=== PATIENT | female | born 1955 | race Caucasian/White ===

== ENCOUNTER 2018-05-13 06:30 | Day surgery (SDC) | payer BC, OTHER ==
[~2018-05-13] VITALS: Ht 165.1 cm; Wt 83.0 kg
[~2018-05-13 06:30] MED LIST: ALBU8.5H8 INH; COLE1TAB5 PO; FLUT1DIS IH; LEVO88TA2 PO; PANT40TA5 PO; PARO12.53 PO
[2018-05-13] MEDS ORDERED: LACTATED RINGERS 1,000 ML IV SCH (06:56)
[2018-05-13] MEDS ORDERED: SCOPOLAMINE PATCH, 1.5MG PATCH.TD72 TD ONE (07:00)
[2018-05-13] MEDS ORDERED: ONDANSETRON ODT 8 MG PO ONE (07:00)
[2018-05-13] MEDS ORDERED: ACETAMINOPHEN 500 MG TABLET PO ONE (07:00)
[2018-05-13] MEDS ORDERED: GABAPENTIN 300 MG CAPSULE PO ONE (07:00)
[2018-05-13] MEDS ORDERED: BUPIVACAINE/PF 0.5% ONE (07:11)
[2018-05-13] MEDS ORDERED: EPINEPHRINE 1 MG/ML, 1ML ONE (07:11)
[2018-05-13] MEDS ORDERED: MIDAZOLAM 1 MG/ML, 2ML ONE (08:15)
[2018-05-13] MEDS ORDERED: FENTANYL PF 100 MCG/2ML ONE (08:15)
[2018-05-13] MEDS ORDERED: PROPOFOL 50 ML ONE (08:28)
[2018-05-13] MEDS ORDERED: FENTANYL PF 100 MCG/2ML IV PRN (09:00)
[2018-05-13] MEDS ORDERED: LABETALOL 5MG/ML, 20ML IV PRN (09:00)
[2018-05-13] MEDS ORDERED: PROMETHAZINE 25 MG SUPP PR PRN (09:00)
[2018-05-13] MEDS ORDERED: MORPHINE SULFATE 4 MG/ML, 1ML IVPush PRN (09:00)
[2018-05-13] MEDS ORDERED: OXYcodone 5 MG/5 ML ORAL.SOL UDC PO PRN (09:00)
[2018-05-13] MEDS ORDERED: MIDAZOLAM 1 MG/ML, 2ML IV PRN (09:00)
[2018-05-13] MEDS ORDERED: HYDROmorphone 2 MG/ML, 1ML IV PRN (09:00)
[2018-05-13] MEDS ORDERED: MEPERIDINE/PF 25MG/0.5ML IVPush PRN (09:00)
[2018-05-13] MEDS ORDERED: PROMETHAZINE 25 MG/ML, 1ML IV PRN (09:00)
[2018-05-13] MEDS ORDERED: EPHEDRINE 50 MG/ML, 1ML IVPush PRN (09:00)
[2018-05-13] MEDS ORDERED: ONDANSETRON ODT 8 MG PO PRN (09:00)
[2018-05-13] MEDS ORDERED: EPHEDRINE 50 MG/ML, 1ML IM PRN (09:00)
[2018-05-13] MEDS ORDERED: ALBUTEROL/IPRATROPIUM 2.5MG/0.5MG, 3 ML NPPB PRN (09:00)
[2018-05-13] MEDS ORDERED: CEFAZOLIN 1,000 MG ONE (09:19)
[2018-05-13] MEDS ORDERED: GLYCOPYRROLATE 0.2MG/1ML, 5ML ONE (09:19)
[2018-05-13] MEDS ORDERED: PROPOFOL 10 MG/ML, 20ML ONE (09:19)
[2018-05-13] MEDS ORDERED: SUCCINYLCHOLINE 20 MG/ML, 10ML ONE (09:19)
[2018-05-13] MEDS ORDERED: NEOSTIGMINE 1 MG/ML, 10ML ONE (09:19)
[2018-05-13] MEDS ORDERED: ROCURONIUM 10MG/ML,5ML ONE (09:19)
[2018-05-13] MEDS ORDERED: ONDANSETRON 2MG/ML, 2ML ONE (09:19)
[2018-05-13] MEDS ORDERED: DEXAMETHASONE 4 MG/ML, 1ML ONE (09:19)
[2018-05-13] MEDS ORDERED: MORPHINE SULFATE 4 MG/ML, 1ML ONE (09:36)
[2018-05-13] MEDS ORDERED: OXYcodone 5 MG/5 ML ORAL.SOL UDC ONE (09:37)
[2018-05-13] MEDS ORDERED: PROMETHAZINE 25 MG/ML, 1ML ONE (09:50)
[2018-05-13] MEDS ORDERED: CEFOTETAN 2 GM ONE (10:55)
== END 2018-05-13 15:40 ==
LOC: OUT 06:30
PROVIDERS: ATTEND Surgery
DX: K82.8 Other specified diseases of gallbladder (principal); K21.9 Gastro-esophageal reflux disease without esophagitis; E03.9 Hypothyroidism, unspecified; E66.9 Obesity, unspecified; J45.909 Unspecified asthma, uncomplicated; Z98.890 Other specified postprocedural states; Z90.13 Acquired absence of bilateral breasts and nipples; Z72.89 Other problems related to lifestyle; Z88.5 Allergy status to narcotic agent
CPT/HCPCS: 47562; 88304; 93005; 94640; J0171; J0330; J0690; J1100; J2250; J2405; J2550; J2704; J2710; J3010; J3490; J7120; Q0162; J7620; S0074

== ENCOUNTER → 2018-08-05 | Outpatient (CLI) | payer OTHER ==
[~2018-08-05] MED LIST changes: +REGADENOSON 0.4 MG/5 ML SYRINGE ONE
== END | disposition home or self-care (01) ==
LOC: CFH 08:06
PROVIDERS: ATTEND Internal Medicine Cardiovascular Disease
DX: R07.89 Other chest pain (principal); R55 Syncope and collapse
CPT/HCPCS: 78452; 93017; A9502; J2785

== ENCOUNTER 2019-06-21 06:54 | Outpatient (CLI) | payer OTHER ==
[~2019-06-21 06:54] MED LIST changes: -REGADENOSON 0.4 MG/5 ML SYRINGE ONE
[2019-06-21] MEDS ORDERED: REGADENOSON 0.4 MG/5 ML SYRINGE ONE (07:33)
== END 2019-06-21 23:59 | disposition home or self-care (01) ==
LOC: CVU 06:54
PROVIDERS: ATTEND Internal Medicine Cardiovascular Disease
DX: I36.1 Nonrheumatic tricuspid (valve) insufficiency (principal); I25.9 Chronic ischemic heart disease, unspecified; R55 Syncope and collapse; Z85.3 Personal history of malignant neoplasm of breast
CPT/HCPCS: 0399T; 78452; 93017; 93306; A9502; J2785

== ENCOUNTER 2019-08-01 10:01 | Outpatient (CLI) | payer OTHER | END 2019-08-01 23:59 | disposition home or self-care (01) | LOC: CFH 10:01 | PROVIDERS: ATTEND Internal Medicine Hematology & Oncology | DX: R16.0 Hepatomegaly, not elsewhere classified (principal); C50.919 Malignant neoplasm of unspecified site of unspecified female breast; Z90.49 Acquired absence of other specified parts of digestive tract | CPT/HCPCS: 74181 ==

== ENCOUNTER 2020-06-20 08:10 | Day surgery (SDC) | payer OTHER ==
[~2020-06-20] VITALS: Ht 165.1 cm; Wt 81.6 kg
[~2020-06-20 08:10] MED LIST changes: -PANT40TA5 PO; +PANT40TA6 PO; -PARO12.53 PO; +PARO12.54 PO
[2020-06-20] MEDS ORDERED: MULT-752 PO (09:23)
[2020-06-20] MEDS ORDERED: ZOLP6.252 PO (09:23)
[2020-06-20] MEDS ORDERED: LACT1CAP35 PO (09:23)
[2020-06-20] MEDS ORDERED: ASPI81TA45 PO (09:23)
[2020-06-20] MEDS ORDERED: MIDO5TAB9 PO (09:23)
[2020-06-20 09:24] VITALS: BP 133/64
[2020-06-20 10:27] LABS: BASOPHILS # (AUTO) 0.05 x10^3/uL (0-0.1); BASOPHILS % (AUTO) 1 % (0-1); EOSINOPHILS # (AUTO) 0.19 x10^3/uL (0-0.4); EOSINOPHILS % (AUTO) 4 % (1-7); LYMPHOCYTES # (AUTO) 1.91 x10^3/uL (1-3.4); LYMPHOCYTES % (AUTO) 40 % (22-44); MD NO; MEAN CORPUSCULAR HEMOGLOBIN 29.8 pg (27.0-34.8); MEAN CORPUSCULAR HGB CONC 33.3 g/dL (32.4-35.8); MEAN PLATELET VOLUME 8.2 fL (7.4-10.4); MONOCYTES # (AUTO) 0.33 x10^3/uL (0.2-0.8); MONOCYTES % (AUTO) 7 % (2-9); NEUTROPHILS # (AUTO) 2.34 x10^3/uL (1.8-6.8); NEUTROPHILS % (AUTO) 48 % (42-75); PLATELET COUNT 333 x10^3/uL (130-400); RED BLOOD COUNT 4.85 x10^6/uL (3.82-5.3); RED CELL DISTRIBUTION WIDTH 13.9 % (9.6-15.2)
[2020-06-20 10:33] LABS: INTERNATIONAL NORMALIZED RATIO 0.95 (0.93-1.1); PROTHROMBIN TIME 10.1 Seconds (9.6-11.5)
[2020-06-20 10:36] LABS: ANION GAP 6 mmol/L (5-15); CALCIUM 9.5 mg/dL (8.5-10.1); CHLORIDE 107 mmol/L (98-107)
[2020-06-20] MEDS ORDERED: MIDAZOLAM 1 MG/ML, 2ML ONE ×2 (11:18→11:47)
[2020-06-20] MEDS ORDERED: LIDOCAINE 2%, 20ML ONE (11:18)
[2020-06-20] MEDS ORDERED: FENTANYL PF 100 MCG/2ML ONE (11:18)
== END 2020-06-20 14:54 | disposition home or self-care (01) ==
LOC: CACL 08:10
PROVIDERS: ATTEND Internal Medicine Cardiovascular Disease
DX: R94.39 Abnormal result of other cardiovascular function study (principal); Z11.59 Encounter for screening for other viral diseases; I20.8 Other forms of angina pectoris; I95.9 Hypotension, unspecified; E66.3 Overweight; Z68.29 Body mass index [BMI] 29.0-29.9, adult; Z79.01 Long term (current) use of anticoagulants; Z79.82 Long term (current) use of aspirin; Z79.890 Hormone replacement therapy; Z79.899 Other long term (current) drug therapy; Z88.5 Allergy status to narcotic agent; Z85.3 Personal history of malignant neoplasm of breast; Z85.048 Personal history of other malignant neoplasm of rectum, rectosigmoid junction, and anus; Z86.718 Personal history of other venous thrombosis and embolism; Z90.13 Acquired absence of bilateral breasts and nipples; Z90.710 Acquired absence of both cervix and uterus; Z92.21 Personal history of antineoplastic chemotherapy; Z92.3 Personal history of irradiation
CPT/HCPCS: 36415; 71046; 80048; 85025; 85610; 85730; 87635; 93458; 99156; C1760; C1769; C1894; J2250; J3010; Q9967